=== PATIENT | female | born 1975 | race Caucasian/White ===

== ENCOUNTER → 2023-12-30 08:48 | Outpatient (REF) | payer BC, SELFPAY | LOC: HWRAD 08:48 | PROVIDERS: ATTENDING PHYSICIAN Family Medicine | DX: R05.1 Acute cough (principal) | CPT/HCPCS: 71046 ==

== ENCOUNTER → 2024-01-28 09:28 | Outpatient (REF) | payer BC, SELFPAY | LOC: WDC 09:28 | PROVIDERS: ATTENDING PHYSICIAN Obstetrics & Gynecology; FAMILY PHYSICIAN Family Medicine | DX: R92.2 Inconclusive mammogram (principal) | CPT/HCPCS: 76641 ==

== ENCOUNTER → 2024-03-31 08:42 | Outpatient (REF) | payer BC, SELFPAY | LOC: HWRAD 08:42 | PROVIDERS: ATTENDING PHYSICIAN Family Medicine | DX: E04.1 Nontoxic single thyroid nodule (principal); R16.0 Hepatomegaly, not elsewhere classified | CPT/HCPCS: 76536; 76700 ==

== ENCOUNTER → 2024-04-01 07:55 | Outpatient (REF) | payer BC, SELFPAY | LOC: HWWDC 07:55 | PROVIDERS: ATTENDING PHYSICIAN Obstetrics & Gynecology; FAMILY PHYSICIAN Family Medicine | DX: Z12.31 Encounter for screening mammogram for malignant neoplasm of breast (principal) | CPT/HCPCS: 77063; 77067 ==

== ENCOUNTER → 2024-04-23 19:27 | Outpatient (REF) | payer BC, SELFPAY | LOC: MRI 19:27 | PROVIDERS: ATTENDING PHYSICIAN Family Medicine | DX: K76.9 Liver disease, unspecified (principal) | CPT/HCPCS: 74183; A9575 ==

== ENCOUNTER → 2025-04-04 07:42 | Outpatient (REF) | payer OTHER, SELFPAY | LOC: HWWDC 07:42 | PROVIDERS: ATTENDING PHYSICIAN Obstetrics & Gynecology; FAMILY PHYSICIAN Family Medicine | DX: Z12.31 Encounter for screening mammogram for malignant neoplasm of breast (principal) | CPT/HCPCS: 77063; 77067 ==